=== PATIENT | male | born 1990 | race Two or more races ===

== ENCOUNTER 2017-07-30 03:01 | Emergency (ER) | payer OTHER ==
[2017-07-30 03:13] VITALS: BP 147/69; PULSE 98; RESP 18; TEMP 97.6
--- NOTE | 2017-07-30 04:03 | ED ---
Wound/Laceration HPI - General Chief Complaint: Wound/Laceration Stated Complaint: hand lac Time Seen by Provider: 07/30/17 03:12 Source: patient Mode of arrival: ambulatory Limitations: no limitations - History of Present Illness Initial Comments: 27-year-old male patient presents to the emergency department today for evaluation after experiencing a fall at work. Patient states he was mopping the floor when he slipped and fell striking his head on a glass door. He states that the glass door broke and he landed and broken shards. Patient has multiple small lacerations to his bilateral hands and head. Patient denies any loss of consciousness after the injury. He denies any current headache, dizziness, weakness, nausea, or vomiting. He denies any neck or back pain. He reports his last tetanus vaccine was 1 year ago. He denies any other injuries. Patient denies any chest pain, shortness of breath, abdominal pain, nausea, vomiting, or difficulties with bowel movements or urination. - Related Data Home Medications Medication Instructions Recorded Confirmed No Known Home Medications [No 07/30/17 07/30/17 Known Home Medications] Allergies Allergy/AdvReac Type Severity Reaction Status Date / Time No Known Allergies Allergy Verified 07/30/17 03:12 Review of Systems ROS Statement: Those systems with pertinent positive or pertinent negative responses have been documented in the HPI. ROS Other: All systems not noted in ROS Statement are negative. Past Medical History Past Medical History: No Reported History History of Any Multi-Drug Resistant Organisms: None Reported Past Surgical History: No Surgical Hx Reported Past Psychological History: No Psychological Hx Reported Smoking Status: Current every day smoker Past Alcohol Use History: None Reported Past Drug Use History: None Reported General Exam Limitations: no limitations General appearance: alert, in no apparent distress, other (This is a well- developed, well-nourished adult male patient in no acute distress. Vital signs upon presentation are temperature 97.6F, pulse 98, respirations 18, blood pressure 147/69, pulse ox 98% on room air.) Head exam: Present: other (Patient has a small superficial laceration to the right forehead, the left parietal scalp.) Eye exam: Present: normal appearance, PERRL, EOMI. Absent: scleral icterus, conjunctival injection, periorbital swelling ENT exam: Present: normal exam, normal oropharynx, mucous membranes moist Neck exam: Present: normal inspection, full ROM, other (Nontender, no step-off, no deformity to firm midline palpation of the posterior cervical spine. Full range of motion without pain or limitation.). Absent: tenderness, meningismus, lymphadenopathy Respiratory exam: Present: normal lung sounds bilaterally. Absent: respiratory distress, wheezes, rales, rhonchi, stridor Cardiovascular Exam: Present: regular rate, normal rhythm, normal heart sounds. Absent: systolic murmur, diastolic murmur, rubs, gallop, clicks Extremities exam: Present: full ROM, normal capillary refill, other (Patient has multiple tiny superficial lacerations to his bilateral hands. Skin is otherwise pink, warm, and dry. Cap refills less than 3 seconds. Radial pulses 2+ and equal bilaterally.). Absent: normal inspection, tenderness, pedal edema , joint swelling, calf tenderness Back exam: Present: normal inspection. Absent: vertebral tenderness Neurological exam: Present: alert, oriented X3, CN II-XII intact Psychiatric exam: Present: normal affect, normal mood Skin exam: Present: warm, dry, intact, normal color. Absent: rash Course Vital Signs 07/30/17 03:08 Temperature 97.6 F Pulse Rate 98 Respiratory 18 Rate Blood Pressure 147/69 O2 Sat by Pulse 98 Oximetry Medical Decision Making - Medical Decision Making 27-year-old male patient presents to the emergency department today for evaluation after experiencing a fall at work. Patient did have multiple tiny lacerations to his bilateral hands as well as his forehead and left parietal scalp. Wounds were cleansed and explored for possible retained glass. None of these wounds required closure as they were very superficial and small. Patient' s last tetanus vaccine was 1 year ago. I did discuss signs or symptoms of infection with the patient. He is instructed to follow-up with his primary care physician for recheck in 1-2 days. He is instructed to return here immediately for any new, worsening, or concerning symptoms. He verbalizes understanding and agrees with this plan. Disposition Clinical Impression: Multiple lacerations Disposition: HOME SELF-CARE Condition: Good Instructions: Laceration (ED), Acute Wound Care (ED) Additional Instructions: Keep wounds clean and dry. Monitor for signs or symptoms of infection including but not limited to redness, drainage of pus, swelling, fever, or chills. Follow up with your primary care physician for recheck in 1-2 days. Return here immediately for any new, worsening, or concerning symptoms. Referrals: None,Stated [Primary Care Provider] - 1-2 days Time of Disposition: 04:03
== END 2017-07-30 04:09 | disposition home or self-care (01) ==
LOC: EC 03:01
DX: S61.412A Laceration without foreign body of left hand, initial encounter (principal); S61.411A Laceration without foreign body of right hand, initial encounter; S01.81XA Laceration without foreign body of other part of head, initial encounter; S01.01XA Laceration without foreign body of scalp, initial encounter; F17.200 Nicotine dependence, unspecified, uncomplicated; W25.XXXA Contact with sharp glass, initial encounter; W01.198A Fall on same level from slipping, tripping and stumbling with subsequent striking against other object, initial encounter; Y99.0 Civilian activity done for income or pay
CPT/HCPCS: 99282